=== PATIENT | female | born 1970 | race Caucasian/White ===

== ENCOUNTER 2016-07-15 11:56 | Emergency (ER) | payer OTHER ==
[2016-07-15 13:54] VITALS: BP 128/64
== END 2016-07-15 13:54 | disposition home or self-care (01) ==
LOC: ED 11:56
DX: S61.411A Laceration without foreign body of right hand, initial encounter (principal); W25.XXXA Contact with sharp glass, initial encounter; Y93.89 Activity, other specified; Y99.8 Other external cause status; Y92.89 Other specified places as the place of occurrence of the external cause
CPT/HCPCS: 90715; J2001

== ENCOUNTER 2016-07-17 14:49 | Emergency (ER) | payer OTHER ==
[~2016-07-17] VITALS: Ht 160 cm; Wt 94.9 kg
[2016-07-17 14:52] VITALS: BP 125/95
== END 2016-07-17 16:35 | disposition home or self-care (01) ==
LOC: ED 14:49
DX: S61.411D Laceration without foreign body of right hand, subsequent encounter (principal); X58.XXXD Exposure to other specified factors, subsequent encounter; Y92.89 Other specified places as the place of occurrence of the external cause; Y99.8 Other external cause status

== ENCOUNTER 2016-07-29 10:50 | Emergency (ER) | payer OTHER ==
[2016-07-29 10:57] VITALS: BP 131/75
== END 2016-07-29 11:13 | disposition home or self-care (01) ==
LOC: ED 10:50
DX: Z48.02 Encounter for removal of sutures (principal)